=== PATIENT | female | born 1995 | race American Indian/Alaskan Native ===

== ENCOUNTER 2017-11-30 12:23 | Emergency (ER) | payer MEDICAID, OTHER ==
[2017-11-30 12:23] VITALS: BMI 25.7
--- NOTE | 2017-11-30 13:36 | ED PDOC ---
HPI: Abdomen Time Seen by Provider: 11/30/17 13:19 Chief Complaint (Nursing): Abdominal Pain History Per: Patient History/Exam Limitations: no limitations Onset/Duration Of Symptoms: Days (x last night) Additional History Per: Prior Records Additional Complaint(s): Ms. Pruett is a 22 year old female (approximate 7 weeks ), with a history of left-sided ectopic , who presents to the ED complaining of lower abdominal cramping and vaginal spotting since last night. Patient treated with methotrexate. PMD: Provider TBD Past Medical History Reviewed: Historical Data, Nursing Documentation, Vital Signs Vital Signs: Last Vital Signs Temp 98.1 F 11/30/17 12:43 Pulse 103 H 11/30/17 12:43 Resp 20 11/30/17 12:43 BP 115/70 11/30/17 12:43 Pulse Ox 97 11/30/17 15:47 - Medical History PMH: Gastritis Other PMH: Ectopic (left side) - Family History Family History: States: Unknown Family Hx - Home Medications Home Medications: Ambulatory Orders Medication Instructions Recorded Cyclobenzaprine [Cyclobenzaprine 10 mg PO TID PRN #20 tab 06/28/17 HCl] Naproxen [Naprosyn] 500 mg PO BID #20 tab 06/28/17 Naproxen [Naprosyn] 500 mg PO BID PRN #15 tablet 09/15/17 - Allergies Allergies/Adverse Reactions: Allergies Allergy/AdvReac Type Severity Reaction Status Date / Time No Known Allergies Allergy Verified 10/13/16 18:20 Review of Systems ROS Statement: Except As Marked, All Systems Reviewed And Found Negative Gastrointestinal: Positive for: Other (lower abdominal cramping) Genitourinary Female: Positive for: Other (vaginal spotting) Physical Exam - Reviewed Nursing Documentation Reviewed: Yes Vital Signs Reviewed: Yes - Physical Exam Gastrointestinal/Abdominal: Positive for: Normal Exam, Soft. Negative for: Tenderness Pelvic Exam: Positive for: No Masses, Other (tenderness). Negative for: Active Bleeding, Discharge, Lesions Comments: Pelvic Exam Chaperoned by ORALIA Kirkpatrick - Laboratory Results Result Diagrams: 11/30/17 13:50 11/30/17 13:50 - ECG O2 Sat by Pulse Oximetry: 97 (RA) Pulse Ox Interpretation: Normal Medical Decision Making Medical Decision Making: Time: 13:19 Plan: - Type and Screen - Beta-hCG, Quantitative - CMP - ED Urine Dipstick - cbc - ob transvaginal ultrasound (-) Antibody Screen Beta HCG, Quantitative 27,425.00 mIU/mL Scribe Attestation: Documented by Yong Mcnair, acting as a scribe for Mitesh Sheikh MD Provider Scribe Attestation: All medical the history, physical exam, medical decision making, and the department course for this patient. I have also personally directed, reviewed, and agree with the discharge instructions and disposition.record entries made by the Scribe were at my direction and personally dictated by me. I have reviewed the chart and agree that the record accurately reflects my personal performance of Disposition - Clinical Impression Clinical Impression: Threatened in early - Patient ED Disposition Is Patient to be Admitted: No - Disposition Referrals: Provider ROSE, [Primary Care Provider[facility] - [facility] Disposition: Routine/Home Disposition Time: 16:07 Condition: FAIR Instructions: Threatened Miscarriage Forms: EndPlay (Japanese)
[2017-11-30 14:14] LABS: BASO % 0.4 % (0.0-2.0); EOS # 0.2 K/uL (0.0-0.7); EOS % 2.7 % (0.0-4.0); HEMOGLOBIN 12.3 g/dL (12.0-16.0); LYMPH # 1.5 K/uL (1.0-4.3); LYMPH % 19.9 % (20.0-40.0); MEAN CELL VOLUME 86.5 fl (81.0-99.0); MEAN CORPUSCULAR HEMOGLOBIN 29.3 pg (27.0-31.0); MEAN CORPUSCULAR HGB CONC 33.9 g/dL (33.0-37.0); MEAN PLATELET VOLUME 8.7 fl (7.2-11.7); MONO # 0.6 K/uL (0.0-0.8); MONO % 7.7 % (0.0-10.0); NEUT # 5.4 K/uL (1.8-7.0); NEUT % 69.3 % (50.0-75.0); NRBC % 0.1 % (0.0-0.0); RBC 4.21 Mil/uL (3.80-5.20); RED CELL DISTRIBUTION WIDTH 13.9 % (11.5-14.5); WHITE BLOOD COUNT 7.8 K/uL (4.8-10.8)
[2017-11-30 14:35] LABS: ALB/GLOB RATIO 1.2 (1.0-2.1); ALBUMIN 4.1 g/dL (3.5-5.0); ALT/SGPT 37 U/L (9-52); AST/SGOT 26 U/L (14-36); BLOOD UREA NITROGEN 9 mg/dl (7-17); CALCIUM 9.5 mg/dL (8.4-10.2); GFR AFRICAN-AMERICAN > 60; GFR NON-AFRICAN AMERICAN > 60
--- NOTE | 2017-11-30 16:04 | US ---
PROCEDURE: OB Pelvic Ultrasound HISTORY: r/o ectopic COMPARISON: None available. FINDINGS: UTERUS: Single Live intrauterine gestation. CRL measures 4 mm equal to 6 weeks 0 days gestational age. Gestational sac measures 16 mm equal to 6 weeks 0 days gestational age. age (Ultrasound estimated): 6 weeks 0 days Heart rate: 113 bpm. Tracey-gestational hemorrhage: None. 3 mm yolk sac visualized. Uterus measures 7.0 x 4.7 x 4.0 cm. No mass CERVIX: Long and closed. No cervical abnormality seen. RIGHT OVARY: Measures 2.5 x 1.2 x 2.5 cm. No mass. Normal flow. LEFT OVARY: Measures 3.3 x 1.6 x 2.6 cm. No mass. Normal flow. FREE FLUID: None. OTHER FINDINGS: None. IMPRESSION: Single live intrauterine gestation of approximately 6 weeks 0 days gestational age. No subchorionic hemorrhage. heart rate 113 beats per minute.
[2017-11-30 16:22] VITALS: BP 108/68; PULSE 78; RESP 18; TEMP 98; O2SAT 99
== END 2017-11-30 16:23 | disposition home or self-care (01) ==
LOC: H.ER 12:23 → SUPCPDRO 12:23 → H.ER 16:23
DX: O20.0 Threatened abortion (principal); Z3A.01 Less than 8 weeks gestation of pregnancy